=== PATIENT | female | born 1990 | race Asian ===

== ENCOUNTER 2017-12-30 22:49 | Emergency (ER) | payer OTHER ==
[~2017-12-30] VITALS: Ht 180.3 cm; Wt 117.9 kg
[~2017-12-30 22:49] MED LIST: CIPRO500 MG PO; HYDR25TA60 PO; INSUINJ20 SC; NOVOLIN N1 ML SC; NOVOLIN R U-1001 ML IJ
[2017-12-31 00:48] VITALS: BP 163/91; TEMP 97.9
== END 2017-12-31 00:59 | disposition home or self-care (01) ==
LOC: ED 22:49
DX: S93.401A Sprain of unspecified ligament of right ankle, initial encounter (principal); H92.01 Otalgia, right ear; X50.1XXA Overexertion from prolonged static or awkward postures, initial encounter; Y92.098 Other place in other non-institutional residence as the place of occurrence of the external cause
CPT/HCPCS: 99283; L4350

== ENCOUNTER 2018-01-01 04:48 | Emergency (ER) | payer OTHER ==
[~2018-01-01] VITALS: Ht 180.3 cm; Wt 117.9 kg
[2018-01-01 05:47] VITALS: BP 204/112; TEMP 98.6
== END 2018-01-01 05:50 | disposition home or self-care (01) ==
LOC: ED 04:48
DX: H66.93 Otitis media, unspecified, bilateral (principal)
CPT/HCPCS: 99283

== ENCOUNTER 2018-06-09 21:55 | Emergency (ER) | payer OTHER ==
[~2018-06-09] VITALS: Ht 180.3 cm; Wt 90.7 kg
[2018-06-09 23:11] LABS: PLATELET COUNT 348 K/uL (152-353)
[2018-06-09 23:25] LABS: POTASSIUM 5.1 mmol/L (3.6-5.2)
[2018-06-10 01:43] VITALS: BP 145/95; TEMP 97.5
== END 2018-06-10 01:45 | disposition home or self-care (01) ==
LOC: ED 21:55
DX: R10.84 Generalized abdominal pain (principal); K76.0 Fatty (change of) liver, not elsewhere classified; N83.292 Other ovarian cyst, left side; E11.9 Type 2 diabetes mellitus without complications
CPT/HCPCS: 36415; 80053; 81000; 81025; 82962; 85027; 96374; 99284; J1815; Q9963

== ENCOUNTER 2018-11-09 15:18 | Emergency (ER) | payer OTHER ==
[~2018-11-09] VITALS: Ht 180.3 cm; Wt 114.8 kg
[2018-11-09 16:07] LABS: PLATELET COUNT 290 K/uL (152-353)
[2018-11-09 18:47] VITALS: BP 165/98; TEMP 98
== END 2018-11-09 18:47 | disposition home or self-care (01) ==
LOC: ED 15:18
PROVIDERS: Family Medicine
DX: J11.1 Influenza due to unidentified influenza virus with other respiratory manifestations (principal); E11.65 Type 2 diabetes mellitus with hyperglycemia
CPT/HCPCS: 36415; 80053; 81000; 82947; 85027; 96372; 99283; J1815

== ENCOUNTER 2019-01-03 10:10 | Outpatient (CLI) | payer OTHER ==
[2019-01-03 10:41] LABS: PLATELET COUNT 359 K/uL (152-353)
== END 2019-01-03 22:47 | disposition home or self-care (01) ==
LOC: LABW 10:10
PROVIDERS: Nurse Practitioner Family
DX: Z00.00 Encounter for general adult medical examination without abnormal findings (principal)
CPT/HCPCS: 80053; 85027